=== PATIENT | male | born 1955 | race Caucasian/White ===

== ENCOUNTER 2018-05-07 06:15 | Inpatient (IN) | payer OTHER ==
[~2018-05-07] VITALS: Ht 177.8 cm; Wt 102.5 kg
[~2018-05-07 06:15] MED LIST: ALLOPURINOL 30300 M1 PO; ALTACE10 M1 PO; AMLODIPINE BESY10 MG PO; ASPIR 8181 MG PO; FISH OIL 1,001000 M2 PO; FOLIC ACID1 MG PO; HYDROCHLOROTH12.5 MG PO; HYDROCODON-ACE1 EAC7 PO; LIPITOR80 MG PO; NEXIUM40 MG PO; NITROSTAT0.4 MG SL; PLAVIX 75 MG TA75 M1 PO; POTASSIUM20 PO; TOPROL XL50 MG PO; VIAGRA100 MG PO; XANAX1 MG PO
[2018-05-07 06:54] VITALS: BP 123/85
[2018-05-07 07:55] VITALS: BP 114/78
[2018-05-07] MEDS ORDERED: VIAGRA100 MG PO (08:54)
[2018-05-07 09:05] LABS: ALBUMIN 3.8 g/dL (3.4-5.0); TOTAL PROTEIN 6.9 g/dL (6.4-8.2)
[2018-05-07 09:30] LABS: TSH 0.679 uIU/mL (0.358-3.740)
[2018-05-07 12:10] VITALS: BP 122/81
--- NOTE | 2018-05-07 12:12 | NUR ---
PT ARRIVED PRIOR TO DAY SHIFT, REPORT FROM [facility] 9 THRU 12 VISITING TEACHER NURSE RECEIVED. ADMISSION ASSESSMENT AND QUESTIONS DONE BY DAY SHIFT. PT AOX4, AT BEDSIDE, VSS. ORDERS WERE ACKNOWLEDGED AND IMPLEMENTED. PT WAS ORIENTED TO ROOM.
--- NOTE | 2018-05-07 12:28 | NUR ---
PT UP WALKING HALLS ACCOMPANIED BY EMAIL MANAGER TWICE THIS SHIFT SO FAR.
[2018-05-07 15:50] VITALS: BP 120/77
--- NOTE | 2018-05-07 16:39 | NUR ---
PT PASSING GAS AND HAS HAD 2 FORMED STOOLS TODAY, STILL C/O SOME EPIGASTRIC DISCOMFORT, BLOATING AND ACID REFLUX.
[2018-05-07 19:55] VITALS: BP 112/74
[2018-05-07 23:08] LABS: GLYCOHEMOGLOBIN (HGB A1C) 5.4 % (4.8-5.6)
[2018-05-08 00:22] VITALS: BP 115/70
--- NOTE | 2018-05-08 03:28 | NUR ---
ASSUMED CARE 1899. VSS. ASSESSMENT CHARTED. PT C/O EPIGASTRIC PAIN AND BACK PAIN, CONTROLLED WITH PRN PAIN MEDS. PT DENIES CP, N/V, SOA. AMBULATING WELL, HAD 2 BM THIS SHIFT. FLUIDS RUNNING PER EMAR. NPO. ACCESS DATABASE DEVELOPER NOTIFIED PO METOPROLOL, ORDERS GIVEN. IV LOPRESSOR ADDED PER EMAR. PLAN FOR LABS AND EKG THIS AM. WILL CONTINUE TO MONITOR AND WITH POC.
[2018-05-08 04:00] VITALS: BP 105/71
[2018-05-08 04:08] LABS: HEMATOCRIT 35.3 % (42.0-52.0); MCHC 33.8 g/dL (28.0-37.0); MCV 94.6 fL (80.0-100.0); RBC 3.73 mil/uL (4.50-6.00); RDW 13.6 % (10.5-14.5); WBC 2.9 thou/uL (4.0-11.0)
[2018-05-08 04:43] LABS: ANION GAP 8 mmol/L (7-16); BUN 13 mg/dL (7-18); CALCIUM 8.1 mg/dL (8.5-10.1); CHLORIDE 105 mmol/L (98-107); CO2 28 mmol/L (21-32); CREATININE 0.9 mg/dL (0.7-1.3); GLUCOSE 101 mg/dL (74-106); MAGNESIUM 1.9 mg/dL (1.8-2.4); POTASSIUM 3.7 mmol/L (3.5-5.1); SODIUM 141 mmol/L (136-145); TROPONIN-I <0.06 ng/mL (<0.06)
[2018-05-08 07:38] VITALS: BP 116/74
--- NOTE | 2018-05-08 08:47 | EKG ---
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
--- NOTE | 2018-05-08 08:53 | EKG ---
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
--- NOTE | 2018-05-08 10:14 | 2DMMODE ---
[facility] [place] [address] 2 D/M-MODE ECHOCARDIOGRAM Name: GREG HOUSTON Room #: 206-P [facility] IN ..#: [id number] Admission: 05/07/18 Attend Phys: Shane Leary, Discharge: Date of : 53 Date of Service: 05/08/18 1013 Report #: [id number] THIS REPORT FOR: //name// APPROVED REPORT Study performed: 05/08/2018 09:27:13 EXAM: Comprehensive 2D, Doppler, and color-flow Echocardiogram Patient Location: Echo lab Room #: [facility] Status: routine BSA: 2.20 HR: 82 bpm BP: 105/71 mmHg Rhythm: NSR Other Information Study Quality: Adequate Indications Chest Pain Hx: CAD, multiple stents, HTN, HLP, COPD Echo Enhancing Agent Indication: Endocardial border delineation Agent(s) / Amount(s) Used: Optison 3 cc 2D Dimensions RVDd: 36.93 mm IVSd: 10.24 (7-11mm) LVOT Diam: 21.00 (18-24mm) LVDd: 47.77 mm PWd: 10.16 (7-11mm) LVDs: 35.70 (25-40mm) Aortic Root: 36.01 mm Volumes Left Atrial Volume (Systole) Single Plane 4CH: 51.31 mL Single Plane 2CH: 63.02 mL LA ESV Index: 27.00 mL/m2 Aortic Valve AoV Peak Juan Manuel.: 1.61 m/s AO Peak Gr.: 10.39 mmHg LVOT Max P.46 mmHg LVOT Max V: 1.37 m/s COLEMAN Vmax: 2.93 cm2 [facility] [place] [address] [place] [address] 2 D/M-MODE ECHOCARDIOGRAM Name: GREG HOUSTON Room #: 206-P [facility] IN [facility]#: [id number] Admission: 05/07/18 Attend Phys: Shane Leary, Discharge: Date of : 53 Date of Service: 05/08/18 1013 Report #: [id number] Mitral Valve E/A Ratio: 0.8 MV Decel. Time: 262.24 ms MV E Max Juan Manuel.: 0.92 m/s MV A Juan Manuel.: 1.21 m/s MV PHT: 76.05 ms IVRT: 100.35 ms Pulmonary Valve PV Peak Juan Manuel.: 0.90 m/s PV Peak Gr.: 3.27 mmHg Pulmonary Vein P Vein S: 0.70 m/s P Vein A: 0.33 m/s P Vein D: 0.54 m/s P Vein A Dur.: 100.3 msec P Vein S/D Ratio: 1.30 Tricuspid Valve RAP Estimate: 5.00 mmHg Left Ventricle The left ventricle is normal size. Regional wall motion is not well visualized but grossly normal. There is normal left ventricular wall thickness. Left ventricular systolic function is normal. LVEF is 55-60%. Mild diastolic dysfunction is present (impaired relaxation pattern). Right Ventricle The right ventricle is normal size. The right ventricular systolic function is normal. Atria The left atrium size is normal. The right atrium size is normal. Aortic Valve The aortic valve is not well visualized but appears grossly normal. No aortic regurgitation is present. There is no aortic valvular stenosis. Mitral Valve The mitral valve is normal in structure. Trace mitral regurgitation. Tricuspid Valve The tricuspid valve is normal in structure. There is no tricuspid valve regurgitation noted. Unable to assess PA pressure. [facility] [address] [place] [address] 2 D/M-MODE ECHOCARDIOGRAM Name: GREG HOUSTON Room #: 206-P [facility] IN .R.#: [id number] Admission: 05/07/18 Attend Phys: Shane Leary, Discharge: Date of : 53 Date of Service: 05/08/18 1013 Report #: [id number] Pulmonic Valve Pulmonic valve is not well visualized. There is no pulmonic valvular regurgitation. Great Vessels The aortic root is normal in size. Ascending aorta is not well visualized. IVC is normal in size and collapses >50% with inspiration. Pericardium There is no pericardial effusion. <Conclusion> Left ventricular systolic function is normal. Regional wall motion is not well visualized but grossly normal. LVEF is 55-60%. Mild diastolic dysfunction The aortic valve is not well visualized but appears grossly normal. No aortic regurgitation or stenosis The mitral valve is normal in structure. Trace mitral regurgitation. Pulmonary artery could not be reliably ascertained There is no pericardial effusion. <ELECTRONICALLY SIGNED> By: Magdy Perea MD, [facility] 05/08/18 1013 1013 1013 Magdy Perea MD, FACC /INF
[2018-05-08 12:49] VITALS: BP 139/78
[2018-05-08 16:11] VITALS: BP 114/78
--- NOTE | 2018-05-08 17:00 | NUR ---
REPEAT KUB THIS AM SHOWS IMPROVEMENT. NO ILEUS OR SBO. PT STARTED ON CLEAR LIQUIDS AND ADVANCED TO FULL LIQUIDS. TOLERATING WELL, NO NAUSEA OR VOMITING. PT C/O CHRONIC BACK PAIN, PRN MEDS EFFECTIVE. PT BECAME INCREASINGLY IRRITABLE THROUGHOUT THE DAY STATING HE WANTS TO GO HOME.
[2018-05-08 20:33] VITALS: BP 163/92
[2018-05-09 04:37] VITALS: BP 138/81
[2018-05-09 04:43] LABS: HEMATOCRIT 35.9 % (42.0-52.0); HEMOGLOBIN 11.9 gm/dL (14.0-18.0); MCH 31.2 pg (26.0-34.0); MCHC 33.1 g/dL (28.0-37.0); MCV 94.5 fL (80.0-100.0); RBC 3.8 mil/uL (4.50-6.00); RDW 13.3 % (10.5-14.5); WBC 2.7 thou/uL (4.0-11.0)
[2018-05-09 04:45] LABS: CALCIUM 8.3 mg/dL (8.5-10.1); CREATININE 0.9 mg/dL (0.7-1.3); MAGNESIUM 1.8 mg/dL (1.8-2.4); POTASSIUM 3.7 mmol/L (3.5-5.1)
--- NOTE | 2018-05-09 04:46 | NUR ---
Pt has slept intermittently through noc. Tolerated full liquid diet and now to have soft diet this morning. Reports that abdomen feels better, now just has his chronic back pain. Medicated per EMAR with desired effect. Voiding well, up ad antonio. Hopeful that he is able to go home today. Progressing towards goals.
[2018-05-09 07:42] VITALS: BP 140/90
[2018-05-09 09:38] VITALS: BP 140/90
[2018-05-09 11:11] VITALS: BP 138/90
[2018-05-09 12:18] VITALS: BP 140/90
[2018-05-09 13:24] VITALS: BP 140/90
== END 2018-05-09 13:40 | disposition home or self-care (01) | DRG 389 ==
LOC: 2N 06:15 → ENTRNSPT 05-09 13:33 → EDTRNSPTSTS 05-09 13:35 → 2N 05-09 13:40
PROVIDERS: ADMIT Internal Medicine
DX: K56.609 Unspecified intestinal obstruction, unspecified as to partial versus complete obstruction (principal); K55.9 Vascular disorder of intestine, unspecified; K56.7 Ileus, unspecified; I10 Essential (primary) hypertension; K44.9 Diaphragmatic hernia without obstruction or gangrene; M19.90 Unspecified osteoarthritis, unspecified site; M10.9 Gout, unspecified; E78.5 Hyperlipidemia, unspecified; K21.9 Gastro-esophageal reflux disease without esophagitis; J44.9 Chronic obstructive pulmonary disease, unspecified; R19.7 Diarrhea, unspecified; F41.9 Anxiety disorder, unspecified; I25.10 Atherosclerotic heart disease of native coronary artery without angina pectoris; Z95.5 Presence of coronary angioplasty implant and graft; Z79.899 Other long term (current) drug therapy; I25.2 Old myocardial infarction; Z87.891 Personal history of nicotine dependence; Z80.9 Family history of malignant neoplasm, unspecified; Z83.6 Family history of other diseases of the respiratory system; Z82.49 Family history of ischemic heart disease and other diseases of the circulatory system
CPT/HCPCS: 10081